=== PATIENT | female | born 1970 | race Caucasian/White ===

== ENCOUNTER 2018-11-03 12:04 | Emergency (ER) | payer BC ==
[2018-11-03 12:38] VITALS: BP 116/73; PULSE 91; TEMP 98.5; BMI 21.2
[2018-11-03] MEDS ORDERED: FOLIC ACID INJECTION - 1 MG, THIAMINE HCL 100 MG, MULTIVIT INJECTION ADULT 10 ML in SOD... IVPB ONE (12:50)
--- NOTE | 2018-11-03 13:55 | PDOC ---
History of Present Illness - General Chief Complaint: Alcohol intoxication Stated Complaint: INTOXICATE Time Seen by Provider: 11/03/18 12:40 History Source: Patient Exam Limitations: No Limitations - History of Present Illness Initial Comments: 11/03/18 12:55 47-year-old female presents to ED with alcohol Intoxication. states patient has been drinking for the past 2 days straight and is concerned that she might require detox. Patient has been in and out of rehabilitation, various programs and even has been on Antabuse with no resolution. Patient 2 days ago had the device removed from her car which was mandated by Court secondary to URI but began drinking when it was removed. Patient has no complaints of headache, abdominal pain or chest pain Timing/Duration: constant Severity: moderate Associated Symptoms: reports: denies symptoms Past History - Travel Traveled outside of the country in the last 30 days: No Close contact w/someone who was outside of country & ill: No - Past Medical History Allergies/Adverse Reactions: Allergies Allergy/AdvReac Type Severity Reaction Status Date / Time No Known Allergies Allergy Verified 11/03/18 12:55 - Suicide/Smoking/Psychosocial Hx Smoking History: Never smoked Hx Alcohol Use: Yes (today) Drug/Substance Use Hx: No Patient Lives Alone: No Lives with/in: spouse/SO Review of Systems - Review of Systems Able to Perform ROS?: Yes Constitutional: No: Symptoms Reported HEENTM: No: Symptoms Reported Respiratory: No: Symptoms reported Cardiac (ROS): No: Symptoms Reported ABD/GI: No: Symptoms Reported : No: Symptoms Reported Musculoskeletal: No: Symptoms Reported Integumentary: No: Symptoms Reported Neurological: No: Symptoms reported Psychiatric: Yes: Other Endocrine: No: Symptoms Reported Hematologic/Lymphatic: No: Symptoms Reported *Physical Exam - Vital Signs Last Vital Signs Temp Pulse Resp BP Pulse Ox 98.5 F 91 H 20 116/73 97 11/03/18 12:32 11/03/18 12:32 11/03/18 12:32 11/03/18 12:32 11/03/18 12:32 - Physical Exam General Appearance: Yes: Nourished, Appropriately Dressed, Intoxicated HEENT: negative: Pale Conjunctivae Neck: positive: Supple Respiratory/Chest: positive: Lungs Clear, Normal Breath Sounds. negative: Respiratory Distress, Accessory Muscle Use Cardiovascular: positive: Regular Rhythm, Regular Rate. negative: Murmur Gastrointestinal/Abdominal: positive: Soft. negative: Tenderness Integumentary: positive: Normal Color, Warm, Moist Neurologic: positive: Motor Strength 5/5 ( ambulatory) ED Treatment Course - LABORATORY CBC & Chemistry Diagram: 11/03/18 13:45 11/03/18 13:45 Medical Decision Making - Medical Decision Making 11/03/18 14:24 Chief complaint: On Quant intoxication with heavy drinking for the past 2 days. Patient with history of alcohol abuse in recent rehabilitation and Court main dated driving device. Patient is currently asymptomatic Exam: Intoxicated Vital signs stable no apparent injury Plan: Labs, urine, banana bag and will consider detox 11/03/18 15:46 Laboratory Tests 11/03/18 11/03/18 11/03/18 13:45 13:45 13:45 WBC 5.5 Hgb 12.9 Hct 37.6 Absolute Neuts (auto) 3.3 Neutrophils % 61.2 Sodium 144 Potassium 3.8 Chloride 113 H Carbon Dioxide 25 Anion Gap 6 L BUN 9.7 Creatinine 0.8 Est GFR (CKD-EPI)AfAm 101.75 Est GFR (CKD-EPI)NonAf 87.79 Random Glucose 82 Calcium 8.2 L Magnesium 2.2 Total Bilirubin 0.2 AST 19 ALT 17 Alkaline Phosphatase 33 L Total Protein 6.4 Albumin 3.9 Lipase 148 Alcohol, Quantitative 341.8 H Pt is willing to go to [facility] for detox. 11/03/18 16:03 Calling extension [phone] to arrange transportation *DC/Admit/Observation/Transfer Diagnosis at time of Disposition: Alcohol intoxication - Referrals Referrals: Toni Orozco [Primary Care Provider] - - Patient Instructions - Post Discharge Activity
[2018-11-03 13:57] LABS: BASO % 0.6 % (0-2.0); EOS % 0.3 % (0-4.5); HEMATOCRIT 37.6 % (32.4-45.2); HEMOGLOBIN 12.9 GM/dL (10.7-15.3); LYMPH % 33.4 % (8-40); MCH 32.1 pg (25.7-33.7); MCHC 34.2 g/dl (32.0-36.0); MONO % 4.5 % (3.8-10.2); NEUT % 61.2 % (42.8-82.8); PLATELET COUNT 162 K/MM3 (134-434); RDW 13.6 % (11.6-15.6); WHITE BLOOD COUNT 5.5 K/mm3 (4.0-10.0)
[2018-11-03 14:32] LABS: ALBUMIN 3.9 g/dl (3.4-5.0); BILIRUBIN,TOTAL 0.2 mg/dL (0.2-1); BLOOD UREA NITROGEN 9.7 mg/dL (7-18); CALCIUM 8.2 mg/dL (8.5-10.1); CREATININE 0.8 mg/dL (0.55-1.3); MAGNESIUM 2.2 mg/dL (1.8-2.4); POTASSIUM 3.8 mmol/L (3.5-5.1); TOT PROT 6.4 g/dl (6.4-8.2)
--- NOTE | 2018-11-03 16:35 | PDOC ---
*Physical Exam - Vital Signs Last Vital Signs Temp Pulse Resp BP Pulse Ox 98.5 F 91 H 20 116/73 97 11/03/18 12:32 11/03/18 12:32 11/03/18 12:32 11/03/18 12:32 11/03/18 12:32 ED Treatment Course - LABORATORY CBC & Chemistry Diagram: 11/03/18 13:45 11/03/18 13:45 - ADDITIONAL ORDERS Additional order review: Laboratory Results 11/03/18 11/03/18 13:45 13:45 Sodium 144 Potassium 3.8 Chloride 113 H Carbon Dioxide 25 Anion Gap 6 L BUN 9.7 Creatinine 0.8 Est GFR (CKD-EPI)AfAm 101.75 Est GFR (CKD-EPI)NonAf 87.79 Random Glucose 82 Calcium 8.2 L Magnesium 2.2 Total Bilirubin 0.2 AST 19 ALT 17 Alkaline Phosphatase 33 L Total Protein 6.4 Albumin 3.9 Lipase 148 Alcohol, Quantitative 341.8 H 11/03/18 13:45 RBC 4.00 MCV 94.0 MCHC 34.2 RDW 13.6 MPV 8.0 Neutrophils % 61.2 Lymphocytes % 33.4 Monocytes % 4.5 Eosinophils % 0.3 Basophils % 0.6 - Medications Given in the ED: ED Medications Discontinued Medications Generic Name Dose Route Start Last Admin Trade Name Hallie PRN Reason Stop Dose Admin Folic Acid 1 mg/ Thiamine HCl 1,000 mls @ 500 mls/hr 11/03/18 12:50 11/03/18 14:06 100 mg/ Multivitamins/Minerals IVPB 11/03/18 14:49 500 mls/hr 10 ml/ Sodium Chloride ONCE ONE Administration Medical Decision Making - Medical Decision Making 11/03/18 16:30 Patient endorsed to me to refer her to detox Received a call from Latasha who states there are no detox. However, I should give the patient the number for intake and the discharge papers and she can come in the morning for intake for detox. No signs of withdrawal currently. Selected Entries 11/03/18 12:32 Temperature 98.5 F Respiratory 20 Rate Blood Pressure 116/73 O2 Sat by Pulse 97 Oximetry (%) I discussed the physical exam findings, ancillary test results and final diagnoses with the patient. I answered all of the patient's questions. The patient was satisfied with the care received and felt comfortable with the discharge plan and treatment plan. The Patient agrees to follow up with the primary care physician within 24-72 hours. *DC/Admit/Observation/Transfer Diagnosis at time of Disposition: Alcohol intoxication Qualifiers: Complication of substance-induced condition: uncomplicated Qualified Code(s): F10.920 - Alcohol use, unspecified with intoxication, uncomplicated - Discharge Dispostion Disposition: HOME Condition at time of disposition: Stable - Referrals Referrals: Toni Orozco [Primary Care Provider] - - Patient Instructions Additional Instructions: Your Discharge Instructions: You must call primary care physician within 24 hours to arrange follow-up. Return to the Emergency Department with any new, persistent or worsening symptoms, for fever, chills, SOB, dizziness or any other concerning changes that may occur. Follow-up at [facility] in the morning which her discharge papers and copies of her labs for detox intake. There is [id number]. - Post Discharge Activity
== END 2018-11-03 17:15 | disposition home or self-care (01) ==
LOC: JER 12:04
PROC: 3E033GC Introduction of Other Therapeutic Substance into Peripheral Vein, Percutaneous Approach (ICD-10-PCS; principal; 2018-11-03)
DX: F10.220 Alcohol dependence with intoxication, uncomplicated (principal); Y90.8 Blood alcohol level of 240 mg/100 ml or more
CPT/HCPCS: 36415; 80053; 80307; 83690; 83735; 85025; 99282-25; J7030